=== PATIENT | female | born 1945 | race Caucasian/White ===

== ENCOUNTER 2018-06-23 16:39 | Outpatient (CLI) | payer OTHER ==
[~2018-06-23 16:39] MED LIST: AMLO10TA88 PO; BENA20TA2 PO; GLU500 PO
== END 2018-06-23 19:47 | disposition home or self-care (01) ==
LOC: SRD 16:39
PROVIDERS: ATTEND Internal Medicine
DX: M77.32 Calcaneal spur, left foot (principal); I70.0 Atherosclerosis of aorta; I10 Essential (primary) hypertension; E11.9 Type 2 diabetes mellitus without complications

== ENCOUNTER 2019-10-01 19:48 | Inpatient (IN) | payer OTHER, MEDICAID ==
[~2019-10-01] VITALS: Ht 157.5 cm; Wt 73.5 kg
[~2019-10-01 19:48] MED LIST changes: -BENA20TA2 PO; +BENA20TA9 PO
[2019-10-01 20:10] VITALS: BP_SYST 153
--- NOTE | 2019-10-01 20:25 | NUR ---
Patient triaged and placed in waiting room. VSS and patient appears in no acute distress at this time. Accompanied by daughter, awaiting available bed, and MD notified of need for MSE.
[2019-10-01 20:53] LABS: BLOOD, URINE NEGATIVE (NEGATIVE); COLOR,URINE YELLOW (YELLOW); GLUCOSE,URINE NEGATIVE (NEGATIVE); KETONES,URINE TRACE (NEGATIVE); LEUKOCYTE ESTERASE ,URINE 2+ (NEGATIVE); NITRITE, URINE NEGATIVE (NEGATIVE); PROTEIN URINE NEGATIVE (NEGATIVE); UROBILINOGEN,URINE 0.2 (0.2-1.0)
[2019-10-01 21:03] LABS: BILIRUBIN,URINE NEGATIVE (NEGATIVE); CLARITY/URINE HAZY (CLEAR)
[2019-10-01 21:04] LABS: BACTERIA,URINE MODERATE /HPF (None Seen); RBC,URINE NONE SEEN /HPF (0-3)
[2019-10-01 21:05] LABS: MUCUS,URINE None Seen /LPF (None Seen)
[2019-10-01 22:30] LABS: HEMATOCRIT 33.6 % (36-48); HEMOGLOBIN 11.1 g/dL (12.0-16.0); MEAN CORPUSCULAR HEMOGLOBIN 32 pg (27-31); MEAN CORPUSCULAR HGB CONC 33 % (32-36); MEAN CORPUSCULAR VOLUME 97 fL (79.0-98.0); PLATELET COUNT (AUTO) 215 K/uL (130-430); RED BLOOD CELL COUNT(AUTO) 3.47 MIL/uL (4.2-6.2); RED CELL DISTRIBUTION WIDTH 13.9 % (9.0-15.0); WHITE BLOOD COUNT (AUTO) 22.7 K/uL (4.8-10.8)
[2019-10-01 22:39] LABS: ANION GAP 6 (5-15); CALCIUM 8.6 mg/dL (8.4-11.0); CHLORIDE 98 mmol/L (98-107); CREATININE 0.93 mg/dL (0.55-1.30); GLUCOSE 205 mg/dL (70-99); POTASSIUM 4.4 mmol/L (3.5-5.1); SODIUM SERUM 133 mmol/L (136-145); UREA NITROGEN, BLOOD 25 mg/dL (8-21)
[2019-10-01 22:45] LABS: ALANINE AMINOTRANSFERASE 25 U/L (12-78); ALBUMIN 3.2 g/dL (3.4-4.8); ASPARTATE AMINOTRANSFERASE 14 U/L (10-37); BAND % (MANUAL) 0 % (0-6); BASOPHILS % (MANUAL) 0 % (0-2); EOSINOPHILS % (MANUAL) 0 % (0-7); LYMPHOCYTES % (MANUAL) 19 % (20-46); MONOCYTES % (MANUAL) 8 % (0-11); TOTAL BILIRUBIN 0.5 mg/dL (0.0-1.0)
--- NOTE | 2019-10-01 22:57 | NUR ---
Patient to ER bed 5 to gown for evaluation. Side rails up.
--- NOTE | 2019-10-01 23:30 | NUR ---
Pt came to [facility] ED for 3 week low back pain which radiates to the back. Reports that pain worsens with movement. Per daughter. physician told patient that she had a bladder infection and high WBC and needs further work up. Denies n/v/d or fever. No other complaints/injuries noted. Will cont. to monitor.
[2019-10-02] VITALS (7 sets, daily range): BP systolic 119–191
--- NOTE | 2019-10-02 00:12 | NUR ---
ER at bedside examining patient.
[2019-10-02] MEDS ORDERED: cefTRIAXone 1 GM IVPB PREMIX 50 ML IV ONE (00:15)
--- NOTE | 2019-10-02 00:15 | NUR ---
Pt ambulated with steady gait to bathroom. No signs of acute distress. Will cont. to monitor.
--- NOTE | 2019-10-02 01:14 | NUR ---
Pt went to ultrasound via wheelchair. Tolerated well. Will cont. to monitor.
--- NOTE | 2019-10-02 02:00 | NUR ---
Pt resting comfortably in bed, no signs of acute distress. Will cont. to monitor.
--- NOTE | 2019-10-02 03:38 | NUR ---
Unable to do med reconcilation due to pt unable to recall medications and dosages.
--- NOTE | 2019-10-02 03:39 | NUR ---
Pts family will bring in medications from home.
--- NOTE | 2019-10-02 04:00 | NUR ---
Pt resting comfortably in bed, no signs of acute distress. Will cont. to monitor.
--- NOTE | 2019-10-02 07:08 | NUR ---
Dr. quintero at bedside.
[2019-10-02] MEDS ORDERED: ONDANSETRON HCL 4 MG/2 ML VIAL IVP PRN (07:15)
[2019-10-02] MEDS ORDERED: HYDROcodone/ACETAMIN 10-325 MG TAB PO PRN (07:15)
[2019-10-02] MEDS ORDERED: ALBUTEROL SULFATE 0.083% 2.5 MG/3 ML VIAL.NEB INH PRN (07:15)
--- NOTE | 2019-10-02 07:15 | NUR ---
Patient ambulated to the bathroom with a steady gait.
--- NOTE | 2019-10-02 07:23 | NUR ---
Report received from TRESA Wilburn. Patient sitting up in bed, awake and alert, respirations even and unlabored.
--- NOTE | 2019-10-02 07:56 | NUR ---
Patient will be admitted to care of Dr. Gardner. Admitted to MS unit. Will go to room 122A. Belongings list completed. Complete and up to date summary report printed. SBAR report given to TRESA Coppola over the phone with opportunity for questions.
--- NOTE | 2019-10-02 08:05 | NUR ---
ADMISSION NOTE Received patient from ER via constance, received report from JIM GTZ. Patient admitted with diagnosis of DEHYDRATION. Patient oriented to hospital routine, call light, toileting and safety-patient verbalized understanding.
[2019-10-02] MEDS: amLODIPine BESYLATE 10 MG TABLET PO SCH (08:28)
[2019-10-02] MEDS: LISINOPRIL 20 MG TABLET PO SCH ×2 (08:29→22:08)
[2019-10-02 08:30] LABS: BASOPHILS # (AUTO) 0.1 K/uL (0.0-0.2); BASOPHILS % (AUTO) 0.3 % (0.0-2.0); EOSINOPHILS # (AUTO) 0.1 K/uL (0.0-0.4); EOSINOPHILS % (AUTO) 0.8 % (0.0-4.0); HEMATOCRIT 36.8 % (36-48); HEMOGLOBIN 12.1 g/dL (12.0-16.0); LYMPHOCYTES # (AUTO) 4.2 K/uL (1.0-5.5); LYMPHOCYTES % (AUTO) 22.8 % (20.5-51.5); MEAN CORPUSCULAR HEMOGLOBIN 32 pg (27-31); MEAN CORPUSCULAR HGB CONC 33 % (32-36); MEAN CORPUSCULAR VOLUME 96 fL (79.0-98.0); MONOCYTES % (AUTO) 5.6 % (1.7-9.3); NEUTROPHILS # (AUTO) 13.1 K/uL (1.8-7.7); NEUTROPHILS % (AUTO) 70.5 % (40.0-70.0); PLATELET COUNT (AUTO) 236 K/uL (130-430); RED BLOOD CELL COUNT(AUTO) 3.81 MIL/uL (4.2-6.2); RED CELL DISTRIBUTION WIDTH 13.7 % (9.0-15.0); WHITE BLOOD COUNT (AUTO) 18.5 K/uL (4.8-10.8)
[2019-10-02] MEDS ORDERED: FLU VACC TS2019(65UP)/MF59C/PF 45 MCG/0.5 ML SYRINGE I.M. PRN (08:30)
--- NOTE | 2019-10-02 08:30 | NUR ---
Medication patient resting in bed, awake, states mild pain, educated on blood pressure medications uses and potential side effects, she verbalized understanding and tolerated well, IV line is patent and infusing well, dose of Rocephin already given in ER to patient, no other needs at this time, bed in lowest position, two side rails up, call light within reach, fall and aspiration precautions in place.
[2019-10-02] MEDS: cefTRIAXone 1 GM IVPB PREMIX 50 ML IV SCH ×2 (08:37→08:54)
[2019-10-02 08:44] LABS: ALANINE AMINOTRANSFERASE 30 U/L (12-78); ALBUMIN 3.1 g/dL (3.4-4.8); ANION GAP 3 (5-15); ASPARTATE AMINOTRANSFERASE 15 U/L (10-37); CALCIUM 8.4 mg/dL (8.4-11.0); CHLORIDE 104 mmol/L (98-107); CREATININE 0.77 mg/dL (0.55-1.30); GLUCOSE 67 mg/dL (70-99); POTASSIUM 4.3 mmol/L (3.5-5.1); SODIUM SERUM 138 mmol/L (136-145); TOTAL BILIRUBIN 0.7 mg/dL (0.0-1.0); UREA NITROGEN, BLOOD 19 mg/dL (8-21)
--- NOTE | 2019-10-02 11:23 | NUR ---
RN rounds/blood glucose patient resting in bed, her family is at bedside, patient denies pain, patient wanting to use her own blood glucose machine for checking blood glucose, will get an order from the doctor, insulin coverage provided per MD orders, patient tolerated well, no other needs at this time, continuing to monitor, bed in lowest position, two side rails up, call light within reach, fall and aspiration precautions in place.
[2019-10-02] MEDS: INSULIN LISPRO SLIDING SCALE 100 UNITS/ML VIAL (humaLOG) SUBCUT PRN (11:25)
--- NOTE | 2019-10-02 14:10 | NUR ---
RN rounds patient resting in bed, awake, states mild but tolerable pain at level at this time, educated the patient on pain management, she verbalized understanding, her family is at bedside, patient has no other needs at this time, continuing to monitor, bed in lowest position, two side rails up, call light within reach, fall and aspiration precautions in place.
--- NOTE | 2019-10-02 17:05 | NUR ---
RN rounds/blood glucose patient resting in bed, her family is at bedside, patient denies pain, patient wanting to use her own blood glucose machine for checking blood glucose, will get an order from the doctor, no insulin coverage provided per MD orders, no other needs at this time, continuing to monitor, bed in lowest position, two side rails up, call light within reach, fall and aspiration precautions in place, her family is at bedside
[2019-10-02] MEDS ORDERED: COMMUNICATION ORDER XX ONE (17:30)
--- NOTE | 2019-10-02 18:56 | NUR ---
Closing note patient resting in bed, denies pain, visitor is at bedside, all needs met, will endorse report to NOC shift nurse, bed in lowest position, two side rails up, fall and aspiration precautions in place, call light within reach of patient.
[2019-10-02] MEDS: HYDROcodone/ACETAMIN 5-325 MG TAB (NORCO/ VICODIN) PO PRN (22:23)
[2019-10-03] VITALS: BP_SYST 154
[2019-10-03] MEDS: INSULIN LISPRO SLIDING SCALE 100 UNITS/ML VIAL (humaLOG) SUBCUT PRN ×4 (00:58→21:28)
[2019-10-03 04:00] VITALS: BP_SYST 171
[2019-10-03 06:56] LABS: BASOPHILS # (AUTO) 0.1 K/uL (0.0-0.2); BASOPHILS % (AUTO) 0.4 % (0.0-2.0); EOSINOPHILS # (AUTO) 0.1 K/uL (0.0-0.4); HEMATOCRIT 34.3 % (36-48); HEMOGLOBIN 11.4 g/dL (12.0-16.0); LYMPHOCYTES # (AUTO) 4.1 K/uL (1.0-5.5); MEAN CORPUSCULAR HEMOGLOBIN 32 pg (27-31); MEAN CORPUSCULAR HGB CONC 33 % (32-36); MEAN CORPUSCULAR VOLUME 97 fL (79.0-98.0); MONOCYTES # (AUTO) 1.2 K/uL (0.0-1.0); MONOCYTES % (AUTO) 7.5 % (1.7-9.3); NEUTROPHILS # (AUTO) 9.8 K/uL (1.8-7.7); NEUTROPHILS % (AUTO) 64.1 % (40.0-70.0); PLATELET COUNT (AUTO) 192 K/uL (130-430); RED BLOOD CELL COUNT(AUTO) 3.54 MIL/uL (4.2-6.2); RED CELL DISTRIBUTION WIDTH 13.7 % (9.0-15.0); WHITE BLOOD COUNT (AUTO) 15.3 K/uL (4.8-10.8)
--- NOTE | 2019-10-03 08:00 | NUR ---
received awake and in no c/o discomfort vss resp even and unlabored.iv sl patent set up for breakfast continue to monitor call [place] in place
[2019-10-03] MEDS: LISINOPRIL 20 MG TABLET PO SCH ×2 (08:49→21:24)
[2019-10-03] MEDS: amLODIPine BESYLATE 10 MG TABLET PO SCH (08:50)
[2019-10-03 09:16] LABS: ALANINE AMINOTRANSFERASE 32 U/L (12-78); ALBUMIN 3.1 g/dL (3.4-4.8); ASPARTATE AMINOTRANSFERASE 16 U/L (10-37); CHLORIDE 104 mmol/L (98-107); CREATININE 0.77 mg/dL (0.55-1.30); GLUCOSE 144 mg/dL (70-99); POTASSIUM 3.9 mmol/L (3.5-5.1); SODIUM SERUM 137 mmol/L (136-145); TOTAL BILIRUBIN 0.7 mg/dL (0.0-1.0); UREA NITROGEN, BLOOD 19 mg/dL (8-21)
[2019-10-03 09:19] LABS: ANION GAP < 3 (5-15)
--- NOTE | 2019-10-03 10:09 | NUR ---
CONSULTATION PAGED/CALLED Reason for Consultation: [] UTI Person Who was Notified: [] ADRIANA Consulting Physician: [] DR SANCHEZ, DR Mustapha GUILLEN RUBBER BALL FINISHER Territory Development Manager Specialty: [] ID Ordering Physician: [] DR Linda HARRIS
[2019-10-03] MEDS ORDERED: DEXTROSE 50%-WATER 50 ML DISP.SYRIN IVP PRN (11:15)
[2019-10-03] MEDS ORDERED: D5W 1,000 ML IV PRN (11:15)
[2019-10-03] MEDS ORDERED: GLUCOSE 15 GM GEL (in 37.5 GM TUBE) PO PRN (11:15)
--- NOTE | 2019-10-03 12:00 | NUR ---
blood sugar 317 and covered per ss.no c/o discomfort vss family at bedside.continue to monitor call [place] in place
[2019-10-03 12:08] VITALS: BP_SYST 153
[2019-10-03] MEDS: cefTRIAXone 1 GM IVPB PREMIX 50 ML IV SCH ×2 (13:09→21:24)
[2019-10-03 16:29] VITALS: BP_SYST 144
--- NOTE | 2019-10-03 17:58 | NUR ---
bs 159 and covered per ss.remains in no discomfort family at bedside.taking diet well.continue to monitor call [place] in place
--- NOTE | 2019-10-03 18:56 | NUR ---
REPORT TO EMBROIDERY DESIGNER RN TO BE GIVEN
[2019-10-03 19:00] VITALS: BP_SYST 124
--- NOTE | 2019-10-03 19:15 | NUR ---
change of shift.pt.presents quiescent affect;calm,dtr@bedside.pt.presents no c/o pain,nausea.pt.presents iv access intact;patent; iv lock. general status stable.respiratory status stable;unlabored@room air.pt.capable to ambulate;reposition self.pt.presents language primary;[place];pt's preference.prydeinig fluent.call light/telephone w/in reach of the pt.
[2019-10-03 20:00] VITALS: BP_SYST 124
--- NOTE | 2019-10-03 20:00 | NUR ---
pt.assessed.pt.v/s assessed.values w/in normal limits.pt.stated pain present;location;lower back but tolerable@this hour. i have apprised the pt.that i may provide snacks/beverages w/in the shift.no requests posited@this hour.general status stable.respiratory status stable;@room air:02-sat%=96%.pt capable to reposition self;ambulate.call light/telephone w/in reach of the pt.
--- NOTE | 2019-10-03 21:00 | NUR ---
2100p medications administered.i have administer insulin;humalo-units.pt.had requested coffee.i have provided the coffee. i have accompanied the pt.to the restroom.i have accompanied the pt's return to bed.i have re-established iv access location;rt.hand#[id number].
[2019-10-03] MEDS: HYDROcodone/ACETAMIN 5-325 MG TAB (NORCO/ VICODIN) PO PRN (21:53)
--- NOTE | 2019-10-03 22:00 | NUR ---
pt.assessed.pt.had requested medication;pain.i have administered norco;5/325mg po.to assess the efficacy of the medication per pain mgx protocol.no additional requests posited@this hour.
[2019-10-04] VITALS: BP_SYST 120
--- NOTE | 2019-10-04 | NUR ---
pt.assessed.v/s assessed;values w/in normal limits.pt.stated pain present;lower back location but tolerable. no requests posited @this hour.pt capable to reposition self.general status stable.respiratory status stable; unlabored;02-sat%=96%.call light/telephone w/in reach of the pt.
--- NOTE | 2019-10-04 02:00 | NUR ---
pt.assessed.pt.presents quiescent affect;calm,somnolent.pt.assessed for cleanliness.pt capable to reposition self. general status stable.respiratory status stable.o2-sat%=96%.call light/telephone w/in reach of the pt.
--- NOTE | 2019-10-04 04:00 | NUR ---
pt.assessed.pt.presents quiescent affect;calm,somnolent.pt.capable to reposition self.general status stable.respiratory status stable;unlabored.call light/telephone w/in reach of the pt.
--- NOTE | 2019-10-04 06:00 | NUR ---
pt.assessed.blood glucose assessed;per the pt's apparatus.blood glucose value;249mg/dl.i have administered humalog;4-u per sliding scale.no c/o pain,nausea.call light/telephone w/in the reach of the pt.
[2019-10-04] MEDS: INSULIN LISPRO SLIDING SCALE 100 UNITS/ML VIAL (humaLOG) SUBCUT PRN ×4 (06:08→22:18)
[2019-10-04 06:47] LABS: ANION GAP 4 (5-15); CALCIUM 7.8 mg/dL (8.4-11.0); CHLORIDE 102 mmol/L (98-107); GLUCOSE 266 mg/dL (70-99); POTASSIUM 4.4 mmol/L (3.5-5.1); SODIUM SERUM 137 mmol/L (136-145); UREA NITROGEN, BLOOD 18 mg/dL (8-21)
[2019-10-04 06:49] LABS: BASOPHILS % (AUTO) 0.3 % (0.0-2.0); EOSINOPHILS # (AUTO) 0.2 K/uL (0.0-0.4); EOSINOPHILS % (AUTO) 1.5 % (0.0-4.0); HEMATOCRIT 32.8 % (36-48); LYMPHOCYTES # (AUTO) 3.4 K/uL (1.0-5.5); LYMPHOCYTES % (AUTO) 22.5 % (20.5-51.5); MEAN CORPUSCULAR HEMOGLOBIN 32 pg (27-31); MEAN CORPUSCULAR HGB CONC 33 % (32-36); MEAN CORPUSCULAR VOLUME 97 fL (79.0-98.0); MONOCYTES # (AUTO) 0.9 K/uL (0.0-1.0); MONOCYTES % (AUTO) 6.2 % (1.7-9.3); NEUTROPHILS # (AUTO) 10.5 K/uL (1.8-7.7); NEUTROPHILS % (AUTO) 69.5 % (40.0-70.0); PLATELET COUNT (AUTO) 188 K/uL (130-430); RED CELL DISTRIBUTION WIDTH 13.4 % (9.0-15.0); WHITE BLOOD COUNT (AUTO) 15.1 K/uL (4.8-10.8)
[2019-10-04 08:00] VITALS: BP_SYST 157
--- NOTE | 2019-10-04 08:00 | NUR ---
Note Pt sitting up in bed eating her breakfast. No SOB/resp distress or pain/discomfort noted at this time. IV in right hand intact and patent at this time. No needs noted at this time. Call light within reach.
--- NOTE | 2019-10-04 08:15 | NUR ---
Note Dr Altamirano on the floor and HIDA scan ordered at this time. Pt kept NPO from this time for procedure at 1400. PR tech spoke to pt and pt's daughter - questions/concerns were answered at this time.
[2019-10-04] MEDS: LISINOPRIL 20 MG TABLET PO SCH ×2 (08:23→22:13)
[2019-10-04] MEDS: amLODIPine BESYLATE 10 MG TABLET PO SCH (08:23)
[2019-10-04 09:18] LABS: C-REACTIVE PROTEIN QUANT 0.2 mg/dL (0-0.5)
[2019-10-04 09:59] LABS: ERYTHROCYTE SEDIMENTATION RATE 9 MM/HR (0-20)
[2019-10-04] MEDS: PIPERACILLIN/TAZO 4.5GM/DEX-IS 100 ML IV SCH ×3 (10:45→22:08)
--- NOTE | 2019-10-04 11:00 | NUR ---
Note Dr Ramos on the floor and MRI of L-spine was ordered. Pt filling out the MRI form at this time with assistance from her daughter.
--- NOTE | 2019-10-04 11:06 | NUR ---
CONSULT NEUROLOGY BACK PAIN DR QUEVEDOFEROZ [phone] S/W [place] OFFICE
--- NOTE | 2019-10-04 11:08 | NUR ---
CONSULT ID ELEVATED WBC DR GUILLEN,[facility] [phone] S/W [place] OFFICE
--- NOTE | 2019-10-04 11:32 | NUR ---
Note technology solutions architect stated pt has left chest wall pacemaker - MRI of spine cannot be done.
[2019-10-04 12:34] VITALS: BP_SYST 145
--- NOTE | 2019-10-04 12:47 | NUR ---
Dietitian Recommendations *Resume diet once done w/ procedure: CCHO diet per MD. Please see nutritional assessment for details. DEL, ALLI
--- NOTE | 2019-10-04 13:30 | NUR ---
Note Pt off the floor via wheelchair for HIDA scan in Nuclear Medicine dept. IV is saline locked at this time.
--- NOTE | 2019-10-04 14:15 | NUR ---
Note Dr Ramos returned call and was notified that MRI of spine could not bed done as pt has pacemaker. ordered CT of spine instead.
--- NOTE | 2019-10-04 15:10 | NUR ---
Note Pt back to room from HIDA scan and CT of lumbar - completed at this time. Pt was given vanilla pudding (sugar free and cranberry juice). Pt's 2 family members are at bedside at this time. Call light within reach.
[2019-10-04 16:37] VITALS: BP_SYST 166
--- NOTE | 2019-10-04 17:20 | NUR ---
P.T. NOTES P.T. AUNG COMPLETED; PATIENT MAY AMBULATE INSIDE ROOM AD [place]. Addendum: 10/04/19 at 1721 by Irish Salcedo PT Amended: Links added.
--- NOTE | 2019-10-04 18:15 | NUR ---
Note Pt sat on side of bed and ate her dinner. Pt was checked on q1' and PRN all shift for needs and care. Pt denies any SOB/resp distress or severe right flank pain/discomfort at this time. IV in right forearm intact and patent. Call light within reach.
--- NOTE | 2019-10-04 19:30 | NUR ---
OPENING NOTES Received patient resting in bed with family at bedside. No signs of respiratory distress observed. IVF running, dressings c/d/i. Call light within reach, bed alarm refused after patient education provided. Bed at lowest position. Will continue to monitor.
[2019-10-04 20:00] VITALS: BP_SYST 123
[2019-10-05] MEDS: PIPERACILLIN/TAZO 4.5GM/DEX-IS 100 ML IV SCH ×2 (06:32→13:52)
[2019-10-05] MEDS: INSULIN LISPRO SLIDING SCALE 100 UNITS/ML VIAL (humaLOG) SUBCUT PRN ×3 (06:36→16:50)
--- NOTE | 2019-10-05 07:26 | NUR ---
CLOSING NOTES Patient is resting, no signs of acute respiratory distress observed. IV site patent, dressings c/d/i. call light within reach, bed alarm on, bed at lowest position. all needs met throughout shift. will endorse care to oncoming shift.
--- NOTE | 2019-10-05 07:30 | NUR ---
OPENING NOTES: RECEIVED PATIENT FROM SEARCH ENGINE MARKETING MANAGER NURSE. PATIENT IS AWAKE AND ALERT x4 LAYING DOWN IN BED. PATIENT STATES SHE HAS BACK PAIN 5/10 BUT DOES NOT WANT ANY PAIN MEDICATIONS. PATIENT IS TOLERATING OXYGEN AT ROOM AIR WITH NO SIGNS OF DISTRESS OR SHORTNESS OF BREATH NOTED. IV SITE IS PATENT WITH NO SIGNS OF INFILTRATION. PATIENT IN STABLE CONDITION. SAFETY, FALL AND ASPIRATION PRECAUTIONS ARE IN PLACE. BED LOCKED IN LOWEST POSITION WITH CALL LIGHT IN REACH. WILL CONTINUE TO MONITOR PATIENT FOR ANY CHANGES.
[2019-10-05 08:23] VITALS: BP_SYST 134
--- NOTE | 2019-10-05 09:40 | NUR ---
MD ROUNDS: DR. OSULLIVAN MAKING HIS ROUNDS. AWARE OF PATIENT'S CONDITION. NEW ORDERS GIVEN.
[2019-10-05] MEDS: amLODIPine BESYLATE 10 MG TABLET PO SCH (09:46)
[2019-10-05] MEDS: LISINOPRIL 20 MG TABLET PO SCH (09:46)
[2019-10-05] MEDS ORDERED: AMOX-426 PO (09:58)
--- NOTE | 2019-10-05 10:10 | NUR ---
RN ROUNDS: PATIENT IS AWAKE AND ALERT x4 LAYING DOWN IN BED. FAMILY AT BEDSIDE. NO SIGNS OF DISTRESS OR SHORTNESS OF BREATH NOTED. PATIENT IN STABLE CONDITION. WILL CONTINUE TO MONITOR PATIENT FOR ANY CHANGES.
[2019-10-05 11:44] LABS: BASOPHILS # (AUTO) 0.1 K/uL (0.0-0.2); BASOPHILS % (AUTO) 0.7 % (0.0-2.0); EOSINOPHILS # (AUTO) 0.2 K/uL (0.0-0.4); EOSINOPHILS % (AUTO) 1.2 % (0.0-4.0); HEMATOCRIT 36.1 % (36-48); HEMOGLOBIN 11.9 g/dL (12.0-16.0); LYMPHOCYTES # (AUTO) 2.4 K/uL (1.0-5.5); LYMPHOCYTES % (AUTO) 13.2 % (20.5-51.5); MEAN CORPUSCULAR HEMOGLOBIN 32 pg (27-31); MEAN CORPUSCULAR HGB CONC 33 % (32-36); MEAN CORPUSCULAR VOLUME 97 fL (79.0-98.0); MONOCYTES # (AUTO) 1.1 K/uL (0.0-1.0); MONOCYTES % (AUTO) 6.3 % (1.7-9.3); NEUTROPHILS # (AUTO) 14.4 K/uL (1.8-7.7); NEUTROPHILS % (AUTO) 78.6 % (40.0-70.0); PLATELET COUNT (AUTO) 217 K/uL (130-430); RED BLOOD CELL COUNT(AUTO) 3.72 MIL/uL (4.2-6.2); RED CELL DISTRIBUTION WIDTH 13.6 % (9.0-15.0); WHITE BLOOD COUNT (AUTO) 18.3 K/uL (4.8-10.8)
[2019-10-05 12:00] VITALS: BP_SYST 138
--- NOTE | 2019-10-05 14:40 | NUR ---
RN ROUNDS/IV: PATIENT IS AWAKE AND ALERT x4 LAYING DOWN IN BED. PATIENT'S IV SITE IS INFILTRATED. IV CATHETER REMOVED AND INTACT WITH NO ACTIVE BLEEDING. NEW IV SITE ON RIGHT AC 22G. ASEPTIC TECHNIQUE USED. SUCCESSFUL AFTER ONE ATTEMPT. IV SITE PATENT WITH NO SIGNS OF INFILTRATION NOTED. PATIENT IN STABLE CONDITION. WILL CONTINUE TO MONITOR PATIENT FOR ANY CHANGES.
[2019-10-05 16:12] VITALS: BP_SYST 141
--- NOTE | 2019-10-05 16:16 | NUR ---
RN ROUNDS: PATIENT IS AWAKE AND ALERT x4 LAYING DOWN IN BED. NO SIGNS OF DISTRESS OR SHORTNESS OF BREATH NOTED. PATIENT IN STABLE CONDITION. WILL CONTINUE TO MONITOR PATIENT FOR ANY CHANGES.
[2019-10-05 18:02] VITALS: BP_SYST 141
--- NOTE | 2019-10-05 18:45 | NUR ---
D/C Patient: Patient given medication reconciliation form and D/C instructions. Exit Care provided. Patient verbalized understanding. MD discussed with patient the results and treatment provided. Ambulatory with steady gait for discharge to home. Patient in stable condition, ID band removed. IV catheter removed, intact and dressing applied, no active bleeding. Rx of Amoxicillin sent to pharmacy. Patient educated on pain management. All belongings sent with patient.
== END 2019-10-05 18:45 | disposition home or self-care (01) | DRG 871 ==
LOC: SED 19:48 → SMU 10-02 02:29
PROVIDERS: ADMIT Internal Medicine Hospice and Palliative Medicine; ATTEND Internal Medicine Hospice and Palliative Medicine
DX: A41.9 Sepsis, unspecified organism (principal); E11.00 Type 2 diabetes mellitus with hyperosmolarity without nonketotic hyperglycemic-hyperosmolar coma (NKHHC); N39.0 Urinary tract infection, site not specified; I10 Essential (primary) hypertension; K80.20 Calculus of gallbladder without cholecystitis without obstruction; E78.5 Hyperlipidemia, unspecified; G89.29 Other chronic pain; M19.90 Unspecified osteoarthritis, unspecified site; Z83.3 Family history of diabetes mellitus; Z95.810 Presence of automatic (implantable) cardiac defibrillator
CPT/HCPCS: 36415; 71045; 72131; 76700-TC; 76856-TC; 78226; 80048; 80053; 81000-TC; 82962; 83605; 85007; 85025; 85027; 85651-TC; 86140; 87040-TC; 87086; 96365; 97163; 99285; A9537; J0696; J2543; J7050

== ENCOUNTER 2019-12-09 12:12 | Outpatient (CLI) | payer OTHER, MEDICAID ==
[~2019-12-09 12:12] MED LIST changes: +AMOX-426 PO
== END 2019-12-09 19:37 | disposition home or self-care (01) ==
LOC: SRD 12:12
PROVIDERS: ATTEND Internal Medicine
DX: R05 Cough (principal); M47.814 Spondylosis without myelopathy or radiculopathy, thoracic region
CPT/HCPCS: 71046-TC

== ENCOUNTER 2022-12-10 06:57 | Day surgery (SDC) | payer OTHER ==
[~2022-12-10] VITALS: Ht 154.9 cm; Wt 65.8 kg
[~2022-12-10 06:57] MED LIST changes: +BENA-6 PO; -BENA20TA9 PO
[2022-12-10] MEDS ORDERED: MEPERIDINE 50 MG/ML VIAL ONE (09:29)
[2022-12-10] MEDS ORDERED: MIDAZOLAM HCL 5 MG/5 ML VIAL ONE (09:29)
[2022-12-10 14:01] VITALS: BP_SYST 150
== END 2022-12-10 11:50 | disposition home or self-care (01) ==
LOC: SDS 06:57
PROVIDERS: ATTEND Internal Medicine Gastroenterology
DX: R10.9 Unspecified abdominal pain (principal); D13.1 Benign neoplasm of stomach; K29.50 Unspecified chronic gastritis without bleeding; K21.9 Gastro-esophageal reflux disease without esophagitis; K44.9 Diaphragmatic hernia without obstruction or gangrene; I10 Essential (primary) hypertension; E11.9 Type 2 diabetes mellitus without complications; Z79.4 Long term (current) use of insulin; Z79.899 Other long term (current) drug therapy; Z20.822 Contact with and (suspected) exposure to COVID-19
CPT/HCPCS: 43251; 82962; 36415; 43239; 88305; 88312; 88313; 99152; 87426; G0378; J2250; J2175

== ENCOUNTER 2023-07-14 18:23 | Emergency (ER) | payer OTHER ==
[~2023-07-14] VITALS: Ht 154.9 cm; Wt 67.1 kg
[2023-07-14 18:29] VITALS: BP_SYST 168; PULSE 73; RESP 22; TEMP 98.3; O2SAT 98
[2023-07-14 19:13] LABS: BILIRUBIN,URINE NEGATIVE (NEGATIVE); BLOOD, URINE NEGATIVE (NEGATIVE); COLOR,URINE YELLOW (YELLOW); GLUCOSE,URINE TRACE (NEGATIVE); KETONES,URINE TRACE (NEGATIVE); LEUKOCYTE ESTERASE ,URINE 2+ (NEGATIVE); NITRITE, URINE NEGATIVE (NEGATIVE); PROTEIN URINE TRACE (NEGATIVE)
[2023-07-14 20:00] LABS: ANION GAP 10 (5-15); CALCIUM 8.9 mg/dL (8.4-11.0); CARBON DIOXIDE 27 mmol/L (23-29); CHLORIDE 104 mmol/L (98-107); CREATININE 1.26 mg/dL (0.55-1.30); GLUCOSE 136 mg/dL (74-106); POTASSIUM 3.9 mmol/L (3.5-5.1); SODIUM SERUM 141 mmol/L (136-145); UREA NITROGEN, BLOOD 26 mg/dL (8-21)
[2023-07-14 20:02] LABS: BASOPHILS # (AUTO) 0.1 K/uL (0.0-0.2); BASOPHILS % (AUTO) 0.6 % (0.0-2.0); EOSINOPHILS # (AUTO) 0.3 K/uL (0.0-0.4); EOSINOPHILS % (AUTO) 2.6 % (0.0-4.0); HEMATOCRIT 31.5 % (36-48); HEMOGLOBIN 10.6 g/dL (12.0-16.0); LYMPHOCYTES % (AUTO) 30.7 % (20.5-51.5); MEAN CORPUSCULAR HEMOGLOBIN 32 pg (27-31); MEAN CORPUSCULAR HGB CONC 34 % (32-36); MEAN CORPUSCULAR VOLUME 96 fL (79.0-98.0); MONOCYTES # (AUTO) 0.7 K/uL (0.0-1.0); NEUTROPHILS % (AUTO) 61.1 % (40.0-70.0); PLATELET COUNT (AUTO) 217 K/uL (130-430); RED BLOOD CELL COUNT(AUTO) 3.28 MIL/uL (4.2-6.2); RED CELL DISTRIBUTION WIDTH 12.9 % (9.0-15.0)
[2023-07-14 20:04] LABS: ALANINE AMINOTRANSFERASE 20 U/L (12-78); ALBUMIN 3.3 g/dL (3.4-4.8); ASPARTATE AMINOTRANSFERASE 16 U/L (10-37); TOTAL BILIRUBIN 0.4 mg/dL (0.0-1.0)
[2023-07-14 20:07] LABS: CLARITY/URINE HAZY (CLEAR)
[2023-07-14 20:08] LABS: BACTERIA,URINE MODERATE /HPF (None Seen); RBC,URINE 0-3 /HPF (0-3); WBC,URINE 20-50 /HPF (0-3)
[2023-07-14 20:09] LABS: FINE GRANULAR CASTS,URINE 0-10 /LPF (None Seen); MUCUS,URINE 1+ /LPF (None Seen)
[2023-07-14] MEDS ORDERED: NACL 0.9% 1,000 ML IV ONE (22:15)
[2023-07-14] MEDS ORDERED: cefTRIAXone 1 GM IVPB PREMIX 50 ML IV ONE (22:15)
[2023-07-14] MEDS ORDERED: MORPHINE 4 MG INJ. 4 MG/ML VIAL IVP ONE (23:45)
[2023-07-14] MEDS ORDERED: ONDANSETRON HCL 4 MG/2 ML VIAL IVP ONE (23:45)
[2023-07-15] MEDS ORDERED: CIPR500T5 PO (01:18)
[2023-07-15 01:22] VITALS: BP_SYST 137; PULSE 61; RESP 20; TEMP 97.2; O2SAT 98
== END 2023-07-15 01:22 | disposition home or self-care (01) ==
LOC: SED 18:23
DX: N39.0 Urinary tract infection, site not specified (principal); R10.31 Right lower quadrant pain; A41.9 Sepsis, unspecified organism; E11.9 Type 2 diabetes mellitus without complications; I10 Essential (primary) hypertension; Z79.899 Other long term (current) drug therapy
CPT/HCPCS: 99291; 96365; 96375; 96361; 80053; 81001; 82962; 85025; 87040; 87086; 36415; 93005; 83605; 81000; J0696; J2405; J2270; J7030; 99284

== ENCOUNTER 2024-05-17 06:00 | Day surgery (SDC) | payer OTHER ==
[~2024-05-17] VITALS: Ht 162.6 cm; Wt 67.1 kg
[~2024-05-17 06:00] MED LIST changes: +CIPR500T5 PO
[2024-05-17] MEDS ORDERED: MEPERIDINE 100 MG INJ. 100 MG/ML VIAL ONE (07:08)
[2024-05-17] MEDS ORDERED: SIMETHICONE 40 MG/0.6 ML ML ONE (07:08)
[2024-05-17] MEDS ORDERED: MIDAZOLAM HCL 5 MG/5 ML VIAL ONE (07:09)
[2024-05-17 11:09] VITALS: O2SAT 99
[2024-05-17 12:42] VITALS: BP_SYST 150; PULSE 65; RESP 18
== END 2024-05-17 09:04 | disposition home or self-care (01) ==
LOC: SMU 06:00 → SDS 06:00
PROVIDERS: ATTEND Internal Medicine Gastroenterology
DX: R10.9 Unspecified abdominal pain (principal); K29.50 Unspecified chronic gastritis without bleeding; K31.89 Other diseases of stomach and duodenum; K31.A0 Gastric intestinal metaplasia, unspecified; D3A.092 Benign carcinoid tumor of the stomach; K44.9 Diaphragmatic hernia without obstruction or gangrene; I10 Essential (primary) hypertension; E11.9 Type 2 diabetes mellitus without complications; E78.5 Hyperlipidemia, unspecified; E03.9 Hypothyroidism, unspecified; Z79.890 Hormone replacement therapy; Z79.84 Long term (current) use of oral hypoglycemic drugs; Z79.899 Other long term (current) drug therapy; Z95.0 Presence of cardiac pacemaker
CPT/HCPCS: 43239; 82948; 88305; 88312; 88313; 99152; G0378; J2250; J2175